=== PATIENT | female | born 1970 | race Caucasian/White ===

== ENCOUNTER 2018-06-24 09:34 | Emergency (ER) | payer OTHER ==
[~2018-06-24] VITALS: Ht 162.6 cm; Wt 94.1 kg
[2018-06-24 09:46] VITALS: BP 170/115
[2018-06-24] MEDS ORDERED: IBUP-1984 PO (11:38)
== END 2018-06-24 11:52 | disposition home or self-care (01) ==
LOC: ER 09:35
DX: M79.671 Pain in right foot (principal); W22.8XXA Striking against or struck by other objects, initial encounter; Y93.89 Activity, other specified; Y92.89 Other specified places as the place of occurrence of the external cause; Y99.8 Other external cause status
CPT/HCPCS: 73630; 99284

== ENCOUNTER 2022-08-28 12:19 | Emergency (ER) | payer SELFPAY ==
[~2022-08-28] VITALS: Ht 162.6 cm; Wt 64.0 kg
[2022-08-28 12:41] VITALS: BP 151/78
[2022-08-28 13:06] LABS: BASOPHILS % (AUTO) 0.4 % (0-1); EOSINOPHILS # (AUTO) 0.1 X10'3 (0-0.9); HEMATOCRIT 44.9 % (35.0-45.0); HEMOGLOBIN 15.3 g/dl (12.0-16.0); LYMPHOCYTES # (AUTO) 1.1 X10'3 (1.1-4.8); LYMPHOCYTES % (AUTO) 15.5 % (21-51); MEAN CORPUSCULAR HEMOGLOBIN 29.9 PG (27.0-31.0); MEAN CORPUSCULAR HGB CONC 34.2 g/dL (33.0-36.5); MEAN CORPUSCULAR VOLUME 87.4 FL (78-98); MEAN PLATELET VOLUME 7.7 FL (7.4-10.4); MONOCYTES # (AUTO) 0.5 X10'3 (0-0.9); MONOCYTES % (AUTO) 7.3 % (2-12); NEUTROPHILS # (AUTO) 5.3 X10'3 (1.8-7.7); NEUTROPHILS % (AUTO) 75.8 % (42-75); PLATELET COUNT 259 X10'3 (140-440); RED BLOOD COUNT 5.14 X10'6 (4.20-5.60); RED CELL DISTRIBUTION WIDTH 12.8 % (11.5-14.5)
[2022-08-28 13:21] LABS: ALANINE AMINOTRANSFERASE 19 U/L (12-78); ALBUMIN 4.5 G/DL (3.4-5.0); ALBUMIN/GLOBULIN RATIO 1.1 (1.1-1.5); ALKALINE PHOSPHATASE 77 IU/L (46-116); ANION GAP 9 (8-16); ASPARTATE AMINO TRANSFERASE 15 U/L (10-37); BILIRUBIN,TOTAL 0.5 MG/DL (0.1-1.0); BLOOD UREA NITROGEN 10 MG/DL (7-18); BUN/CREATININE RATIO 14.3 (6.6-38.0); CALCIUM 10.4 MG/DL (8.5-10.1); CHLORIDE 104 MMOL/L (99-107); GLUCOSE 95 MG/DL (70-104); POTASSIUM 4.1 MMOL/L (3.5-5.1); SODIUM 141 MMOL/L (135-145); TOTAL PROTEIN 8.7 G/DL (6.4-8.2); eGFR 88 ML/MIN
[2022-08-28 16:00] LABS: D-DIMER < 0.19 MG/L FEU (0-0.50)
== END 2022-08-28 16:20 | disposition home or self-care (01) ==
LOC: ER 12:21
DX: R00.2 Palpitations (principal); F41.9 Anxiety disorder, unspecified; F17.200 Nicotine dependence, unspecified, uncomplicated
CPT/HCPCS: 36415; 71045; 80053; 83880; 84443; 84484; 85025; 85379; 93005; 99285

== ENCOUNTER 2023-01-18 04:07 | Emergency (ER) | payer SELFPAY ==
[~2023-01-18] VITALS: Ht 162.6 cm; Wt 61.6 kg
[2023-01-18] MEDS ORDERED: acetaminophen 325mg tablet PO ONE (04:30)
--- NOTE | 2023-01-18 04:43 | NUR ---
Patient to CT
[2023-01-18 05:40] VITALS: BP 144/93
== END 2023-01-18 05:57 | disposition home or self-care (01) ==
LOC: ER 04:07
DX: R51.9 Headache, unspecified (principal); F41.9 Anxiety disorder, unspecified
CPT/HCPCS: 70450; 99284

== ENCOUNTER 2023-05-10 19:53 | Emergency (ER) | payer SELFPAY ==
[~2023-05-10] VITALS: Ht 162.6 cm; Wt 59.1 kg
[2023-05-10 20:43] VITALS: BP 112/86
== END 2023-05-10 23:04 | disposition home or self-care (01) ==
LOC: ER 19:54
DX: R51.9 Headache, unspecified (principal); F41.9 Anxiety disorder, unspecified; M79.10 Myalgia, unspecified site; A69.20 Lyme disease, unspecified
CPT/HCPCS: 99281

== ENCOUNTER 2023-06-01 09:03 | Outpatient (CLI) | payer SELFPAY | END 2023-06-01 23:59 | disposition home or self-care (01) | LOC: RAD 09:03 | PROVIDERS: ATTEND Surgery | DX: R51.9 Headache, unspecified (principal) | CPT/HCPCS: 70551 ==